=== PATIENT | male | born 1990 | race Two or more races ===

== ENCOUNTER 2024-11-09 14:35 | Emergency (ER) | payer MEDICAID ==
[~2024-11-09] VITALS: Ht 171.4 cm; Wt 72.7 kg
[2024-11-09 16:16] VITALS: BP 148/92; PULSE 110; RESP 16; TEMP 97.7; O2SAT 99
== END 2024-11-09 16:17 | disposition home or self-care (01) ==
LOC: ER 14:37
DX: Z00.8 Encounter for other general examination (principal); F15.10 Other stimulant abuse, uncomplicated
CPT/HCPCS: 99281

== ENCOUNTER 2024-11-25 15:07 | Emergency (ER) | payer MEDICAID | END 2024-11-25 15:51 | disposition left against medical advice (07) | LOC: ER 15:08 | DX: Z02.9 Encounter for administrative examinations, unspecified (principal); Z53.21 Procedure and treatment not carried out due to patient leaving prior to being seen by health care provider ==

== ENCOUNTER 2024-11-25 16:05 | Emergency (ER) | payer MEDICAID ==
[~2024-11-25] VITALS: Ht 167.6 cm; Wt 65.7 kg
[2024-11-25 16:07] VITALS: BP 115/85; PULSE 94; RESP 16; TEMP 98; O2SAT 98
--- NOTE | 2024-11-25 16:22 | Physician Documentation ---
History of Present Illness ~ Chief Complaint: Medical Clearance Stated Complaint: MEDICAL CLEARANCE Time Seen by MD: 16:09 OK to notify your PCP?: Yes Source: patient Mode of Arrival: POV Exam Limitations: no limitations HPI 34-year-old male who is here for medical clearance for [facility]. Patient states he is going no due to alcoholism. He states he last drank too tall beers earlier today. Denies any other illicit drug use. Denies any history of seizures. No hallucinations, delirium or tremors. No nausea or vomiting. Tetanus within 5 years?: No Medication Reconciliation Allergies: Coded Allergies: No Known Allergies (Unverified , 11/09/24) Past Medical History Alcohol Use: Heavy Drug Use: methamphetamine Review of Systems All Other Systems at this time: Reviewed and Negative Physical Exam Vital Signs: Temperature: 98.0, Source: Core, Heart Rate: 94, Respiratory Rate: 16, BP: 115/85, Pulse Oximetry: 98, Weight: 65.700 Oxygen Flow Rate: 0 Physical Exam General Appearance: Alert, WD/WN. NAD. HEENT: NCAT, PERRL, EOMI. Neck: Supple, trachea midline. Cardiovascular: RRR. No m/r/g. Lungs: CTAB. Breathing unlabored Extremities: Normal inspection. No edema. Skin: Warm/dry, normal color Neurological: Alert and oriented x4, normal gait. Psychiatric: Affect congruent with mood. Progress Results/Orders Results/Orders Vital Signs 11/25/24 16:07 Temp 98.0 Pulse 94 Resp 16 B/P (MAP) 115/85 Pulse Ox 98 O2 Flow Rate 0 Medical Decision Making Differential Dx:Considerations: Include: Intoxication-Alcohol, Intoxication- Other drug, Personality disorder, Substance abuse disorder, Acute delirium, Closed head injury, Cervical spine injury, Skull fracture, Fracture(s), Abrasion, Contusion, Foreign body, Hematoma, Laceration, Alcohol withdrawl s yndrom, Encephalopathy, Hepatitis, Medically stable, Other Differential Diagnosis Patient has no evidence of alcohol withdrawal disorder. He is not tremulous nor does he demonstrate any sign of hallucination or delirium. Departure Time of Disposition: 16:22 Disposition: 01 HOME / SELF CARE / HOMELESS Impression: Primary Impression: Alcohol abuse Condition: Stable Discharge Instructions: Medical Screening Exam Additional Instructions: you are medically cleared for [facility] Referrals: NO PRIMARY CARE PROVIDER (PCP) Education Educated: Patient Educated regarding: diagnosis, treatment, need for follow up Signature Scribe Signature: x Attestation: SANCHEZ Roman November 25, 2024 16:22
== END 2024-11-25 16:27 | disposition home or self-care (01) ==
LOC: ER 16:05
DX: F10.10 Alcohol abuse, uncomplicated (principal); Y90.9 Presence of alcohol in blood, level not specified
CPT/HCPCS: 99281

== ENCOUNTER 2025-01-05 08:27 | Emergency (ER) | payer MEDICAID ==
[~2025-01-05] VITALS: Ht 170.2 cm; Wt 60.0 kg
[2025-01-05 08:34] VITALS: TEMP 97.2
--- NOTE | 2025-01-05 09:50 | Physician Documentation ---
History of Present Illness ~ Chief Complaint: Vomiting Stated Complaint: "USED FENTANYL NOT FEELING WELL" Time Seen by MD: 09:14 [facility] 34-year-old male ingested fentanyl and meth today and then experienced two episodes of vomiting. Denies any current vomiting or nausea. No Respiratory depression patient is alert and oriented and appropriate to situation Medication Reconciliation Allergies: Coded Allergies: No Known Allergies (Unverified , 11/09/24) Past Medical History Alcohol Use: Heavy Drug Use: methamphetamine Review of Systems All Other Systems at this time: Reviewed and Negative ROS As stated above in the HPI, otherwise all systems are reviewed and negative. Physical Exam Vital Signs: Temperature: 97.2, Heart Rate: 97, Respiratory Rate: 14, BP: 145/96, Pulse Oximetry: 96, Weight: 60.000 Oxygen Flow Rate: 0 Physical Exam General: Alert, no apparent distress. HEENT: PERRL, EOMI, no injection, moist mucous membranes. Neck: Full range of motion. Respiratory: Lungs clear, no respiratory distress. Chest: No accessory muscle use. Cardiovascular: Regular rate and rhythm, no murmurs. Gastrointestinal: Soft, nontender, nondistended. Bowels sounds present. Extremities: Normal range of motion, no deformity. Neurologic: Oriented x4. Psychiatric: Normal mood and affect. Skin: Normal color, warm and dry. No edema, no ecchymosis. Progress Results/Orders Results/Orders Vital Signs 01/05/25 01/05/25 08:34 10:02 Temp 97.2 Pulse 97 87 Resp 14 16 B/P (MAP) 145/96 119/89 Pulse Ox 96 100 O2 Flow Rate 0 Medical Decision Making Findings PATIENT DOES NOT PRESENT THOUGH HE IS INTOXICATED OR HIGH ON STREET DRUGS. NO LONGER VOMITING OR EXPERIENCING NAUSEA MEETS CRITERIA FOR SAFE DISCHARGE Differential Dx:Considerations: Include: Alcohol abuse, Anxiety, Bipolar dis order, Conversion disorder, Delirium, Depression, Drug Overdose-Accidental, Drug Overdose-Intentional, Encephalopathy, Hallucinations, Homicidal, Liver failure, Panic disorder, Personality disorder, Renal failure, Respiratory failure, Schizophrenia, Substance abuse, Suicidal attempt, Suidical gesture, Other Departure Disposition: 01 HOME / SELF CARE / HOMELESS Impression: Primary Impression: General medical exam Condition: Stable Discharge Instructions: Nausea and Vomiting, Adult Referrals: NO PRIMARY CARE PROVIDER (PCP) Signature Scribe Signature: s Attestation: Scribed for Emmanuel Xiao Director Of Strategy & Mobile by Emmanuel Parrish NP . 01/05/25 13:42 EMMANUEL XIAO NP Jan 05, 2025 09:50
[2025-01-05 10:02] VITALS: BP 119/89; PULSE 87; RESP 16; O2SAT 100
== END 2025-01-05 10:25 | disposition home or self-care (01) ==
LOC: ER 08:29
DX: R11.10 Vomiting, unspecified (principal); T40.415A Adverse effect of fentanyl or fentanyl analogs, initial encounter; F10.90 Alcohol use, unspecified, uncomplicated; F15.90 Other stimulant use, unspecified, uncomplicated; Y92.89 Other specified places as the place of occurrence of the external cause; Y90.9 Presence of alcohol in blood, level not specified
CPT/HCPCS: 99281; 99282

== ENCOUNTER 2025-06-05 10:49 | Emergency (ER) | payer MEDICAID ==
[~2025-06-05] VITALS: Ht 167.6 cm; Wt 79.9 kg
[2025-06-05 10:51] VITALS: TEMP 98
--- NOTE | 2025-06-05 11:03 | Physician Documentation ---
History of Present Illness General Chief Complaint: Ingestion Error Stated Complaint: INGESTION ERROR Time Seen by MD: 11:03 History of Present Illness Initial Comments 34-year-old male was brought in by EMS the patient states that he had done three lines of methamphetamine and then he thought he was drinking a bottle of alcohol and he believes the bottle contained it bleach he states it did not taste like alcohol. The patient was initially able to give some history to the nurses now he is fairly noncompliant with the history. Medication Reconciliation Allergies: Coded Allergies: No Known Allergies (Unverified , 02/13/25) Past Medical History Past Medical History: No Pertinent History Alcohol Use: Heavy Drug Use: methamphetamine Review of Systems Unable to obtain complete ROS: altered mental status Physical Exam Physical Exam Vital Signs: Temperature: 98.0, Source: Temporal, Heart Rate: 113, Respiratory Rate: 18, BP: 158/97, Pulse Oximetry: 96, Weight: 79.900 General Appearance VITALS: Reviewed and as above. GENERAL: Awake minimally verbally responsive HEENT: Normocephalic, atraumatic, PERRL, EOMI, dry mucosa, no erythema RESPIRATORY: Lungs clear, normal breath sounds, no respiratory distress. CHEST: No accessory muscle use, no retractions CV: Tachycardic rate, rhythm, no edema, no murmur, No: JVD GI: Soft, non-tender, bowels sounds present, no rebound, guarding, or rigidity BACK: No CVA tenderness, or swelling MUSCULOSKELETAL: No deformities, no edema SKIN: Warm and dry, no rash NEURO: Oriented x4, No motor or sensory deficit PSYCH: Normal mood and affect, no agitation Progress Results/Orders Results/Orders Completed Orders - OHLMIKAYLA TERRELL MD Clonidine Tablet (Catapres Tablet) (06/05/25 11:10) Quetiapine Tablet (Seroquel Tablet) (06/05/25 11:10) Normal Saline 1000ml (0.9% Sodium Chlori (06/05/25 11:25) Haloperidol Lact. (Haldol) (06/05/25 12:30) Vital Signs 06/05/25 06/05/25 06/05/25 06/05/25 10:51 11:04 11:40 12:04 Temp 98.0 Pulse 113 98 121 Resp 18 17 20 B/P (MAP) 158/97 170/115 (133) 177/125 (142) Pulse Ox 96 98 96 Medical Decision Making Additional information obtaine: old records Findings Patient presented after had ingested material that he thought was alcohol he, he states it tasted like bleach the patient has no evidence of kwan in his oropharynx, the patient does appear acutely methamphetamine intoxicated. The patient had a sinus tachycardia on in his engine monitor patient was given IV fluids, patient refused oral medication and the patient left prior to intentional discharged. The patient's prior hospitalizations were reviewed. The patient's pulse oximetry was interpreted as normal and adequate Differential Diagnosis Polysubstance abuse, methamphetamine abuse, cannabis abuse, alcohol abuse Departure Time of Disposition: 09:17 Disposition: 01 HOME / SELF CARE / HOMELESS Impression: Primary Impression: Methamphetamine abuse Referrals: NO PRIMARY CARE PROVIDER (PCP) Signature Scribe Signature: No scribe Attestation: The note accurately reflects work and decisions made by me.Mikayla Smith MD 06/06/25 09:16 MIKAYLA SMITH MD Jun 05, 2025 11:03
[2025-06-05] MEDS: normal saline 1000ML IV soln IVB ONE (11:26)
[2025-06-05 12:04] VITALS: BP 177/125; PULSE 121; RESP 20; O2SAT 96
[2025-06-05] MEDS ORDERED: haloperidol lactate 5mg/ml inj IM ONE (12:30)
== END 2025-06-05 13:02 | disposition left against medical advice (07) ==
LOC: ER 10:51
DX: F15.10 Other stimulant abuse, uncomplicated (principal)
CPT/HCPCS: 96360; 99283; J7030